=== PATIENT | female | born 1985 | race Two or more races ===

== ENCOUNTER 2021-01-18 10:15 | Emergency (ER) | payer MEDICAID, OTHER ==
[~2021-01-18] VITALS: Ht 160 cm; Wt 58.5 kg
[2021-01-18 10:20] VITALS: BP 119/75
--- NOTE | 2021-01-18 10:48 | NUR ---
DR MONIQUE AT BEDSIDE EXAMINING PT
[2021-01-18] MEDS ORDERED: CIPR500T4 PO (10:59)
[2021-01-18] MEDS ORDERED: DOCU-299 PO (10:59)
--- NOTE | 2021-01-18 11:04 | NUR ---
35 YEAR OLD FEMALE COMPLAINS OF RECTAL BLEEDING X YESTERDAY. PT STATES BLOOD IS BRIGHT RED, BUT DENIES PAIN EXCEPT FOR ON/OFF LLQ PAIN /. PT AOX4, BREATHING EVEN AND UNLABORED, SKIN WARM AND DRY. BED IN LOWEST POSITION, LOCKED, BED RAIL UPX1. PMH - HEMORRHOIDS, IBS ALLERGIES - NKA
--- NOTE | 2021-01-18 11:08 | NUR ---
Patient discharged with v/s stable. Written and verbal after care instructions about urinary tract infection, hemorrhoids given and explained. Patient alert, oriented and verbalized understanding of instructions. Ambulatory with steady gait. All questions addressed prior to discharge. ID band removed. Patient advised to follow up with PMD. Rx of cipro, colace given. Patient educated on indication of medication including possible reaction and side effects. Opportunity to ask questions provided and answered.
[2021-01-18 11:16] VITALS: BP 119/75
== END 2021-01-18 11:08 | disposition home or self-care (01) ==
LOC: MED 10:15
DX: K64.9 Unspecified hemorrhoids (principal); N39.0 Urinary tract infection, site not specified
CPT/HCPCS: 81002; 81025; 99283